=== PATIENT | male | born 1960 | race Caucasian/White ===

== ENCOUNTER 2020-07-13 03:18 | Outpatient (CLI) | payer OTHER, SELFPAY ==
[2020-07-13 17:45] LABS: SARS-CoV-2 RNA PCR Negative
== END 2020-07-13 03:19 | disposition home or self-care (01) ==
LOC: ANHCOVIDDT 03:19
PROVIDERS: PCP Nurse Practitioner Family; Visit Provider Internal Medicine Gastroenterology
DX: Z01.812 Encounter for preprocedural laboratory examination (principal); Z20.828 Contact with and (suspected) exposure to other viral communicable diseases
CPT/HCPCS: 87635; C9803; U0003

== ENCOUNTER 2020-07-16 01:12 | Day surgery (SDC) | payer OTHER, SELFPAY ==
[2020-07-10 11:35] VITALS: BMI 26.4
[2020-07-16 07:01] VITALS: BMI 25.9
[2020-07-16 07:04] VITALS: BP 142/78; PULSE 49; RESP 20; TEMP 36.5; O2SAT 100
--- NOTE | 2020-07-16 07:22 | PM.HPGS ---
History of Present Illness History of Present Illness Consent: Risks, benefits, and alternatives have been discussed and questions answered. Patient agrees to proceed with procedure. Chief complaint: Neoplasm Screening Narrative: Beka De Jesus is a 59 year old W male referred for screening colonoscopy secondary to history of colonic polyps. Patient had a small adenomatous polyp removed 5 years ago. Family history of colon polyps in his mother. Patient is asymptomatic. [facility] Past Medical History Medical History (Updated 07/16/20 @ 07:24 by Akash Ott MD) Aftercare following left ankle joint replacement surgery History of gout Surgical History Surgical History (Updated 07/16/20 @ 07:24 by Akash Ott MD) S/P bilateral inguinal herniorrhaphy Social History Social History Smoking packs per day: 0.5 Smoking cigarettes per day: 10.0 Years smoked: 30 Smoking pack-years: 15.00 Smoking status: Former smoker Alcohol intake: current Drinks per week: 4 Substance use: never Substance use type: does not use Living arrangements: with family Spiritual care concerns: No Meds Home Medications and Allergies Home Medications Medication Instructions Recorded Confirmed Type allopurinol 100 mg PO DAILY 07/10/20 07/10/20 History Allergies Allergy/AdvReac Type Severity Reaction Status Date / Time No Known Allergies Allergy Unknown Verified 07/16/20 07:00 Vital Signs Vital Signs - 24 hr 07/16/20 07:04 Temperature 36.5 C Pulse Rate 49 L Respiratory Rate 20 Blood Pressure 142/78 H Pulse Oximetry 100 Exam Const: Orientation/consciousness: patient oriented x3 Resp: Auscultation: clear to auscultation bilaterally Cardio: Rate: regular rate Rhythm: regular rhythm Heart sounds: no murmurs GI: GI Palp: Yes Soft to palpation, No Tenderness to palpation present (GI), Yes No hepatosplenomegaly present and No Palpable mass present Auscultation: normal bowel sounds Neuro: General: patient oriented x3 and no focal motor deficits Extrem: General: no pedal edema Assessment and Plan Additional Plan screening colonoscopy secondary history of colonic polyps
[2020-07-16] MEDS: LACTATED RINGERS 1,000 ML 150 ML IV CONT (07:25)
--- NOTE | 2020-07-16 07:26 | WPDANESEPPF ---
Anes - Initial Pre Proc Eval Procedure: Operation Date: 07/16/20 08:00 Proposed Procedures p Screening Colonoscopy - Akash Ott MD Date/Time: 07/16/20 07:26 Surgeon: Akash Ott MD Pre Op Diagnosis: Neoplasm Screening Patient Data Age: 59 Gender: M Height: 6 ft Weight: 87 kg Last Vital Signs Temp 97.7 F 07/16/20 07:04 Pulse 49 L 07/16/20 07:04 Resp 20 07/16/20 07:04 BP 142/78 H 07/16/20 07:04 Pulse Ox 100 07/16/20 07:04 Allergies Allergy/AdvReac Type Severity Reaction Status Date / Time No Known Allergies Allergy Unknown Verified 07/16/20 07:00 Home Medications Medication Instructions Recorded Confirmed Type allopurinol 100 mg PO DAILY 07/10/20 07/10/20 History Patient hx anesthesia problems: none Family hx anesthesia problems: none PMFSH Past Medical History Medical History (Updated 07/16/20 @ 07:24 by Akash Ott MD) Aftercare following left ankle joint replacement surgery History of gout Surgical History Surgical History (Updated 07/16/20 @ 07:24 by Akash Ott MD) S/P bilateral inguinal herniorrhaphy Social History Social History Smoking packs per day: 0.5 Smoking cigarettes per day: 10.0 Years smoked: 30 Smoking pack-years: 15.00 Smoking status: Former smoker Alcohol intake: current Drinks per week: 4 Substance use: never Substance use type: does not use Living arrangements: with family Spiritual care concerns: No Anes - Eval Final PreProcedure Day of Procedure 07/16/20 07:26 Patient weight: normal Heart: regular rate and rhythm Lungs: clear to auscultation Airway: Mallampati scale class II Neurological: alert and oriented ASA classification: II Emergent: no Anesthetic plan: proceed Anesthesia type and monitoring: general GIVS and standard monitoring Informed Consent: The patient's anesthetic plan and its attendant risks and benefits were discussed with the patient/family/POA. Questions were solicited and answers provided to the satisfaction of the patient/family/POA.
[2020-07-16 08:25] VITALS: BP 97/67; PULSE 53; RESP 16; O2SAT 96
[2020-07-16 08:35] VITALS: BP 110/70; PULSE 45; RESP 21; O2SAT 97
[2020-07-16 08:45] VITALS: BP 120/69; PULSE 46; RESP 22; O2SAT 99
== END 2020-07-16 09:04 | disposition home or self-care (01) ==
PROVIDERS: PCP Nurse Practitioner Family; Visit Provider Internal Medicine Gastroenterology
PROC: 0DJD8ZZ Inspection of Lower Intestinal Tract, Via Natural or Artificial Opening Endoscopic (ICD-10-PCS; CPT 45378; principal; 2020-07-16 08:00)
DX: Z12.11 Encounter for screening for malignant neoplasm of colon (principal); Z86.010 Personal history of colon polyps; K57.30 Diverticulosis of large intestine without perforation or abscess without bleeding; K62.89 Other specified diseases of anus and rectum; M10.9 Gout, unspecified; Z87.891 Personal history of nicotine dependence; Z96.662 Presence of left artificial ankle joint
CPT/HCPCS: 45378; J2001; J2704; J7120